=== PATIENT | female | born 2000 | race Caucasian/White ===

== ENCOUNTER 2022-04-19 20:35 | Emergency (ER) | payer BC ==
[~2022-04-19] VITALS: Ht 160 cm; Wt 54.4 kg
[2022-04-19 20:45] VITALS: BP 114/63
--- NOTE | 2022-04-19 20:45 | NUR ---
BIBFRIEND C/O BACK PAIN X 2 HOURS [employer]. PT AAO X 4, BREATHING UNLABORED. PT DENIES TRAUMA. PT ATTACHED TO MONITOR AND POX. AWAITING MD EMMANUEL
[2022-04-19] MEDS ORDERED: IBUPROFEN 600 MG TABLET ONE (20:56)
[2022-04-19] MEDS ORDERED: CYCLOBENZAPRINE 10 MG TABLET ONE (20:56)
[2022-04-19] MEDS ORDERED: IBUPROFEN 600 MG TABLET PO ONE (21:00)
[2022-04-19] MEDS ORDERED: CYCLOBENZAPRINE 10 MG TABLET PO ONE (21:00)
[2022-04-19] MEDS ORDERED: CYCL5TAB PO (21:03)
[2022-04-19] MEDS ORDERED: IBUP-1953 PO (21:03)
== END 2022-04-19 21:16 | disposition home or self-care (01) ==
LOC: ER 20:45
DX: S39.012A Strain of muscle, fascia and tendon of lower back, initial encounter (principal); X58.XXXA Exposure to other specified factors, initial encounter; Y93.89 Activity, other specified; Y92.89 Other specified places as the place of occurrence of the external cause; Y99.8 Other external cause status